=== PATIENT | male | born 1995 ===

== ENCOUNTER 2021-08-31 11:02 | Emergency (ER) | payer OTHER ==
[2021-08-31 13:17] LABS: Bilirubin,Urine NEG (Negative); Blood,Urine MOD (Negative); Color,Urine Yellow (Yellow); Mucus,Urine 1+ /HPF; Urobilinogen,Urine < 2.0 mg/dL (<2.0)
[2021-08-31 13:26] LABS: RBC,Urine > 182.0 /HPF (0.0-6.0)
[2021-08-31] MEDS ORDERED: KETOROLAC 30 MG/1 ML INJ IV ONE (15:51)
[2021-08-31] MEDS ORDERED: ONDANSETRON 4 MG/2 ML INJ IV ONE (15:51)
[2021-08-31] MEDS ORDERED: MORPHINE 4 MG/1 ML INJ IV ONE (15:51)
--- NOTE | 2021-08-31 16:22 | Cat Scan Report ---
CT ABDOMEN AND PELVIS WITHOUT CONTRAST INDICATION / CLINICAL INFORMATION: rlq and r flank pain. TECHNIQUE: Axial CT images were obtained through the abdomen and pelvis without IV contrast. All CT scans at this location are performed using CT dose reduction for ALARA by means of automated exposure control. COMPARISON: None available. FINDINGS: LOWER CHEST: No significant abnormality LIVER: No significant abnormality GALLBLADDER/BILIARY TREE: No significant abnormality PANCREAS: No significant abnormality SPLEEN: No significant abnormality ADRENALS: No significant abnormality RIGHT KIDNEY / URETER: Punctate stone at the right UVJ with mild right hydronephrosis. There is asymm etric right perinephric stranding. At least 2 punctate nonobstructive stones are present in the calyc es. LEFT KIDNEY / URETER: No significant abnormality. No renal or ureteral calculus identified. No hydron ephrosis. URINARY BLADDER: No significant abnormality REPRODUCTIVE ORGANS: No significant abnormality STOMACH / BOWEL: Small bowel is normal in caliber. The colon is unremarkable. The appendix is normal in caliber. LYMPH NODES: No significant adenopathy. VASCULATURE: No significant abnormality. OTHER: No free air, free fluid, or focal fluid collection is identified. SKELETAL SYSTEM: No acute osseous findings. IMPRESSION: 1. Punctate stone at the right UVJ with mild right hydronephrosis. 2. At least 2 additional punctate left renal stones. Signer Name: Jeancarlos Man MD Signed: 08/31/2021 4:17 PM Workstation Name: [id number]
[2021-08-31 16:51] LABS: Alanine Aminotransferase 46 units/L (7-56); Albumin 4.8 g/dL (3.9-5); BUN/Creatinine Ratio 16; Blood Urea Nitrogen 16 mg/dL (9-20); Calcium 9.6 mg/dL (8.4-10.2); Hemolysis Index 52
[2021-08-31 17:17] LABS: Hematocrit 44.5 % (35.5-45.6); Hemoglobin 14.9 gm/dl (11.8-15.2); Mean Corpuscular HGB Conc 34 % (32-34); Mean Corpuscular Volume 83 fl (84-94); Platelet Count 375 K/mm3 (140-440); Red Blood Count 5.37 M/mm3 (3.65-5.03); Red Cell Distribution Width 14.4 % (13.2-15.2)
--- NOTE | 2021-08-31 17:39 | Emergency Department Report ---
ED Abdominal Pain HPI - General Chief Complaint: Abdominal Pain Stated Complaint: ABD PAIN/VOMITING/LOWER BACK PAIN Time Seen by Provider: 08/31/21 15:46 Source: patient Mode of arrival: Ambulatory Limitations: No Limitations - History of Present Illness Initial Comments: 26-year-old male with no past medical history presents to the emergency department for evaluation of right lower quadrant and right lower back pain that started at 7:00 this morning. He states that pain came on all of a sudden and was associated with nausea and vomiting. He denies dysuria, fever, and penile discharge. He states that pain initially was 10 out of 10 but now is 7 out of 10. He states that he went to urgent care who sent him here for further evaluation. MD Complaint: abdominal pain, flank pain -: Sudden, hour(s) Location: RLQ, R flank Radiation: none Migration to: no migration Severity: severe Severity scale (0 -10): 10 Quality: aching Consistency: constant Associated Symptoms: nausea, vomiting. denies: diarrhea, fever, chills, dysuria, hematemesis, hematochezia, melena, hematuria, anorexia, syncope - Related Data Previous Rx's Medication Instructions Recorded Last Taken Type Acetaminophen/Codeine [Tylenol 1 tab PO Q6H PRN #12 tab 08/31/21 Unknown Rx /Codeine # 3 tab] Ketorolac [Toradol] 10 mg PO Q6H PRN #12 tab 08/31/21 Unknown Rx Ondansetron [Zofran Odt] 4 mg PO Q8HR PRN #12 tab.rapdis 08/31/21 Unknown Rx Tamsulosin [Flomax] 0.4 mg PO QPM #15 cap 08/31/21 Unknown Rx cephALEXin [Keflex] 500 mg PO BID #14 cap 08/31/21 Unknown Rx Allergies Allergy/AdvReac Type Severity Reaction Status Date / Time No Known Allergies Allergy Verified 08/31/21 12:27 ED Review of Systems ROS: Stated complaint: ABD PAIN/VOMITING/LOWER BACK PAIN Other details as noted in HPI Comment: All other systems reviewed and negative Constitutional: denies: chills, fever Eyes: denies: vision change ENT: denies: congestion Respiratory: denies: cough, shortness of breath, SOB with exertion, SOB at rest, stridor, wheezing Cardiovascular: denies: chest pain, palpitations, dyspnea on exertion, orthopnea, edema, syncope, paroxysmal nocturnal dyspnea Gastrointestinal: abdominal pain, nausea, vomiting. denies: diarrhea, hematemesis, melena, hematochezia Genitourinary: denies: urgency, dysuria, frequency, hematuria, discharge, testicular pain Musculoskeletal: denies: back pain Skin: denies: rash, lesions Neurological: denies: headache, weakness Hematological/Lymphatic: denies: easy bleeding ED Past Medical Hx - Medications Home Medications: Home Medications Medication Instructions Recorded Confirmed Last Taken Type Acetaminophen/Codeine [Tylenol 1 tab PO Q6H PRN #12 tab 08/31/21 Unknown Rx /Codeine # 3 tab] Ketorolac [Toradol] 10 mg PO Q6H PRN #12 tab 08/31/21 Unknown Rx Ondansetron [Zofran Odt] 4 mg PO Q8HR PRN #12 tab.rapdis 08/31/21 Unknown Rx Tamsulosin [Flomax] 0.4 mg PO QPM #15 cap 08/31/21 Unknown Rx cephALEXin [Keflex] 500 mg PO BID #14 cap 08/31/21 Unknown Rx ED Physical Exam - General Limitations: No Limitations General appearance: alert, in no apparent distress - Head Head exam: Present: atraumatic, normocephalic - Eye Eye exam: Present: normal appearance. Absent: conjunctival injection - Neck Neck exam: Present: normal inspection, full ROM. Absent: tenderness, lymphadenopathy - Respiratory Respiratory exam: Present: normal lung sounds bilaterally. Absent: respiratory distress, wheezes, rales, rhonchi, stridor, chest wall tenderness - Cardiovascular Cardiovascular Exam: Present: regular rate, normal heart sounds - GI/Abdominal GI/Abdominal exam: Present: soft, tenderness (Right lower quadrant), normal bow el sounds. Absent: distended, guarding, rebound, rigid - Extremities Exam Extremities exam: Present: normal inspection, normal capillary refill. Absent: pedal edema, joint swelling, calf tenderness - Back Exam Back exam: Present: normal inspection, CVA tenderness (R). Absent: CVA tenderness (L), vertebral tenderness - Neurological Exam Neurological exam: Present: alert, oriented X3, normal gait - Psychiatric Psychiatric exam: Present: normal affect, normal mood - Skin Skin exam: Present: warm, dry, intact, normal color ED Course Vital Signs 08/31/21 08/31/21 12:28 17:40 Temperature 98.3 F 98.9 F Pulse Rate 83 83 Respiratory 18 20 Rate Blood Pressure 123/82 Blood Pressure 135/87 [Right] O2 Sat by Pulse 100 99 Oximetry - Reevaluation(s) Reevaluation #1: 08/31/21 17:58 Abdominal pain significantly improved. Nausea vomiting resolved. ED Medical Decision Making - Lab Data Result diagrams: 08/31/21 16:15 08/31/21 16:15 - Radiology Data Radiology results: report reviewed CT abdomen and pelvis without contrast: FINDINGS: LOWER CHEST: No significant abnormality LIVER: No significant abnormality GALLBLADDER/BILIARY TREE: No significant abnormality PANCREAS: No significant abnormality SPLEEN: No significant abnormality ADRENALS: No significant abnormality RIGHT KIDNEY / URETER: Punctate stone at the right UVJ with mild right hydronephrosis. There is asymmetric right perinephric stranding. At least 2 punctate nonobstructive stones are present in the calyces. LEFT KIDNEY / URETER: No significant abnormality. No renal or ureteral calculus identified. No hydronephrosis. URINARY BLADDER: No significant abnormality REPRODUCTIVE ORGANS: No significant abnormality STOMACH / BOWEL: Small bowel is normal in caliber. The colon is unremarkable. The appendix is normal in caliber. LYMPH NODES: No significant adenopathy. VASCULATURE: No significant abnormality. OTHER: No free air, free fluid, or focal fluid collection is identified. SKELETAL SYSTEM: No acute osseous findings. IMPRESSION: 1. Punctate stone at the right UVJ with mild right hydronephrosis. 2. At least 2 additional punctate left renal stones. - Medical Decision Making 26-year-old male with no past medical history presents to the emergency department for evaluation of right lower quadrant and right lower back pain that started at 7:00 this morning. He states that pain came on all of a sudden and was associated with nausea and vomiting. He denies dysuria, fever, and penile discharge. He states that pain initially was 10 out of 10 but now is 7 out of 10. He states that he went to urgent care who sent him here for further evaluation. Patient noted to have elevated WBC and moderate amounts of blood in urine. CT scan positive for kidney stone to the right UVJ along with hydro nephrosis. Patient will be treated with Toradol, Tylenol 3, Zofran, and Flomax to take as directed at home. He will be given 7-day course of Keflex given hydronephrosis and elevated white count. Patient is advised to take medication as prescribed and follow-up with urology or primary care provider if no improvement or worsening symptoms. He verbalizes understanding of and agreement with plan of care. Critical care attestation.: If time is entered above; I have spent that time in minutes in the direct care of this critically ill patient, excluding procedure time. ED Disposition Clinical Impression: Kidney stones Disposition: 01 HOME / SELF CARE / HOMELESS Is pt being admited?: No Does the pt Need Aspirin: No Condition: Stable Instructions: Renal Colic, [id number], Kidney Stones, [id number], Dietary Guidelines to Help Prevent Kidney Stones Additional Instructions: Take medications as prescribed. Drink plenty of noncaffeinated fluids. Follow- up with urology if worsening symptoms. Return to the emergency department as needed. Prescriptions: Tamsulosin [Flomax] 0.4 mg PO QPM #15 cap cephALEXin [Keflex] 500 mg PO BID #14 cap Ketorolac [Toradol] 10 mg PO Q6H PRN #12 tab PRN Reason: Pain Acetaminophen/Codeine [Tylenol /Codeine # 3 tab] 1 tab PO Q6H PRN #12 tab PRN Reason: Pain , Severe (7-10) Ondansetron [Zofran Odt] 4 mg PO Q8HR PRN #12 tab.rapdis PRN Reason: Nausea And Vomiting Referrals: ALICIA CLARK MD [Staff Physician] - 3-5 Days RAVI WATERS MD [Staff Physician] - 3-5 Days Forms: Work/School Release Form(ED) Time of Disposition: 17:39
[2021-08-31 17:41] VITALS: BP 135/87
== END 2021-08-31 18:10 | disposition home or self-care (01) ==
LOC: ED 11:02
DX: N20.0 Calculus of kidney (principal); Z79.899 Other long term (current) drug therapy
CPT/HCPCS: 36415; 74176; 80053; 81001; 83690; 85027; 96374; 96375; 99284; J1885; J2270; J2405